=== PATIENT | female | born 1930 | race Caucasian/White ===

== ENCOUNTER 2016-08-26 15:59 | Emergency (ER) | payer MEDICARE, BC ==
--- NOTE | ~2016-08-26 | CR72 ---
[facility]. [facility] A Service of [facility] & [facility] RADIOLOGY TEXT RESULTS PATIENT: VIJAYA CASTRO LOCATION: SED : 32 UNIT #: [id number] AGE: [address]: Smith Rogers MD SEX: F ORDER DR: [id number] [place] [place] [id number] E MR#: [id number] Acc #: [id number] NAME: VIJAYA CASTRO : 1930 SEX: F STUDY DATE/TIME: 08/26/2016 15:59 UNIT: SED ROOM: STUDY DESCRIPTION: CR Chest Single View Portable Attending Physician: Smith Rogers M.D. Ordering Physician: Smith Rogers M.D. Primary Care Physician: Loren Conrad M.D. MEDICAL IMAGING REPORT This report is preliminary unless electronic signature is present. EXAM Portable chest HISTORY 86-year-old female with cough, fever since , 4 days ago. COMPARISON 09/23/2014 FINDINGS Portable view of the chest demonstrates moderate lung volumes and satisfactory technique. Minimal basilar scarring. No infiltrates or effusions. Heart and mediastinum unremarkable. Right paratracheal calcifications compatible with granulomatous disease. Minimal mediastinal density compatible with a hiatal hernia, unchanged from prior studies. Overall no acute findings. Dictated by... Cortney Salinas M.D. THIS IS AN ELECTRONICALLY VERIFIED REPORT Cortney Salinas M.D. at 08/27/2016 10:05 AM ALEJANDRO/jluis TD: 08/27/2016 07:58 JOB #: [id number] MEDICAL IMAGING REPORT Page 1 of 1
[~2016-08-26 15:59] MED LIST: ALBUTEROL17 GM INH; ANTIVERT PO; CIPRO PO; CIPRO250 MG PO; CLARITIN10 M3 PO; DAY TIME COLD-177 ML PO; FLAGYL PO; IBUPROFEN600 MG PO; MEDI-MECLIZINE25 M1; MOBIC PO; MUCINEX DM ER1 EACH PO; MULTI VITAMIN1 EACH PO; NAPROXEN PO; NO MEDICATIONS; PANTOPRAZOLE SO40 MG PO; PHENAZOPYRIDIN100 M1 PO; PRILOSEC20 M1 PO; ROBITUSSIN100 MG/52 PO; VERTICALM25 MG PO; VICODIN 5/500 T1 TAB PO
[2016-08-26 16:29] LABS: INFLUENZA A POS (NEG); INFLUENZA B NEG (NEG)
== END 2016-08-26 16:57 | disposition home or self-care (01) ==
LOC: SED 15:59
PROVIDERS: Emergency Medicine
DX: J10.1 Influenza due to other identified influenza virus with other respiratory manifestations (principal); K21.9 Gastro-esophageal reflux disease without esophagitis; Z90.710 Acquired absence of both cervix and uterus; Z98.890 Other specified postprocedural states; Z98.51 Tubal ligation status; Z88.0 Allergy status to penicillin; Z88.2 Allergy status to sulfonamides; Z79.899 Other long term (current) drug therapy; Z88.8 Allergy status to other drugs, medicaments and biological substances
CPT/HCPCS: 71010; 87804; 99283